=== PATIENT | male | born 1955 | race Caucasian/White ===

== ENCOUNTER 2021-06-06 12:15 | Outpatient (CLI) | payer MEDICARE, BC ==
[2021-06-06 21:50] LABS: SARS-CoV-2 PCR by NAA Not Detected (NotDetected)
== END 2021-06-06 12:16 | disposition home or self-care (01) ==
LOC: CSHLAB 12:15
PROVIDERS: ATTEND Internal Medicine Cardiovascular Disease
DX: Z20.822 Contact with and (suspected) exposure to COVID-19 (principal)
CPT/HCPCS: U0003; U0005

== ENCOUNTER 2021-06-09 07:10 | Day surgery (SDC) | payer MEDICARE, BC ==
[2021-06-09] MEDS ORDERED: Lidocaine 1% (PF) 30 ML VIAL ONE (08:00)
[2021-06-09] MEDS ORDERED: Lidocaine 2% Jelly 5 ML TUBE ONE (08:00)
[2021-06-09] MEDS ORDERED: PROPOFOL 200 MG/20 ML VIAL ONE (08:00)
[2021-06-09 08:14] VITALS: BP 108/57; TEMP 98
[2021-06-09] MEDS ORDERED: FLU VACC QS2021-22(65YR UP)/PF 240 MCG/0.7 ML SYRINGE IM ONE (08:30)
== END 2021-06-09 10:20 | disposition home or self-care (01) ==
LOC: CSHSDC 07:10
PROVIDERS: ATTEND Internal Medicine Cardiovascular Disease
DX: I34.0 Nonrheumatic mitral (valve) insufficiency (principal); E78.5 Hyperlipidemia, unspecified; I10 Essential (primary) hypertension; G47.33 Obstructive sleep apnea (adult) (pediatric); E11.9 Type 2 diabetes mellitus without complications; Z86.73 Personal history of transient ischemic attack (TIA), and cerebral infarction without residual deficits; Z79.899 Other long term (current) drug therapy; Z79.82 Long term (current) use of aspirin; Z79.01 Long term (current) use of anticoagulants; I48.0 Paroxysmal atrial fibrillation; I27.29 Other secondary pulmonary hypertension
CPT/HCPCS: 93312; J2001; J2704